=== PATIENT | male | born 1985 | race Caucasian/White ===

== ENCOUNTER 2018-05-21 12:15 | Emergency (ER) | payer OTHER ==
[~2018-05-21] VITALS: Ht 172.7 cm; Wt 72.6 kg
--- NOTE | 2018-05-21 12:25 | ED General ---
General Chief Complaint: Medical clearance for possible mental health hospitalization Stated Complaint: MEDICAL CLEARANCE Source of Information: Patient, Police History of Present Illness Date Seen by Provider: May 21, 2018 Time Seen by Provider: 12:20 32-year-old man who has been beating his head against a glass enclosure while in [facility]. He states that his "head is air dynamic and has a point that has helped him dig for the cup of [place]lu". Lucifer has been talking to him while in [facility] and telling him to hit his head. Patient denies SI or HI. Has been in police custody for about 3 weeks. Started beating his head on the [place] and glass 2-3 days ago when he got a hematoma and laceration that has stopped bleeding. He reports his last tetanus shot was < 5 years ago. Allergies and Home Medications Patient Home Medication List Home Medication List Reviewed: Yes Review of Systems Review of Systems Constitutional: No chills, No dizziness, No fever EENTM: see HPI; No blurred vision, No epistaxis Respiratory: No cough, No short of breath Cardiovascular: No chest pain, No syncope Gastrointestinal: No abdominal pain, No nausea, No vomiting Musculoskeletal: No joint pain, No muscle pain Skin: see HPI Psychiatric/Neurological: See HPI Past Mbjymmp-Bjhszs-Wgnvlr Hx Past Med/Social Hx: Reviewed Nursing Past Med/Soc Hx Physical Exam Vital Signs Vital Signs - First Documented 05/21/18 12:18 Temp 97.2 Pulse 80 Resp 18 B/P (MAP) 131/84 (100) Pulse Ox 99 O2 Delivery Room Air Capillary Refill : Height, Weight, BMI Height: '" Weight: lbs. oz. kg; BMI Method: General Appearance: No Apparent Distress, WD/WN HEENT: PERRL/EOMI, TMs Normal, Normal ENT Inspection, Pharynx Normal, Other ( Contusion at midforehead, with old healing 2 cm linear laceration/scab) Neck: Full Range of Motion, Normal Inspection, Non Tender, Supple Respiratory: Chest Non Tender, Lungs Clear, Normal Breath Sounds, No Accessory Muscle Use, No Respiratory Distress Cardiovascular: Regular Rate, Rhythm, No Edema, No Gallop, No JVD, No Murmur, Normal Peripheral Pulses Gastrointestinal: Normal Bowel Sounds, Non Tender, Soft Back: Normal Inspection, No CVA Tenderness, No Vertebral Tenderness Extremity: Normal Capillary Refill, Normal Inspection, Normal Range of Motion, Non Tender, No Calf Tenderness, No Pedal Edema Neurologic/Psychiatric: Alert, No Motor/Sensory Deficits, surveyor geodetic II-XII Norm as Tested, Other (Bizarre affect) Skin: Normal Color Progress/Results/Core Measures Suspected Sepsis SIRS Temperature: Pulse: Respiratory Rate: Laboratory Tests 05/21/18 12:30: White Blood Count 8.4 Blood Pressure / Mean: Laboratory Tests 05/21/18 12:30: Creatinine 0.96, Platelet Count 225, Total Bilirubin 0.3 Results/Orders Lab Results Laboratory Tests Test 05/21/18 12:20 05/21/18 12:30 Range/Units Urine Color YELLOW Urine Clarity CLEAR Urine pH 6.5 5-9 Urine Specific Park 1.020 1.016-1.022 Urine Protein NEGATIVE NEGATIVE Urine Glucose (UA) NEGATIVE NEGATIVE Urine Ketones NEGATIVE NEGATIVE Urine Nitrite NEGATIVE NEGATIVE Urine Bilirubin NEGATIVE NEGATIVE Urine Urobilinogen 0.2 NORMAL MG/DL Urine Leukocyte Esterase NEGATIVE NEGATIVE Urine RBC (Auto) TRACE-I NEGATIVE Urine RBC 5-10 H /HPF Urine WBC NONE /HPF Urine Crystals NONE /LPF Urine Bacteria NEGATIVE /HPF Urine Casts NONE /LPF Urine Mucus NEGATIVE /LPF Urine Culture Indicated NO Urine Opiates Screen NEGATIVE NEGATIVE Urine Oxycodone Screen NEGATIVE NEGATIVE Urine Methadone Screen NEGATIVE NEGATIVE Urine Propoxyphene Screen NEGATIVE NEGATIVE Urine Barbiturates Screen NEGATIVE NEGATIVE Ur Tricyclic Antidepressants Screen NEGATIVE NEGATIVE Urine Phencyclidine Screen NEGATIVE NEGATIVE Urine Amphetamines Screen NEGATIVE NEGATIVE Urine Methamphetamines Screen NEGATIVE NEGATIVE Urine Benzodiazepines Screen NEGATIVE NEGATIVE Urine Cocaine Screen NEGATIVE NEGATIVE Urine Cannabinoids Screen NEGATIVE NEGATIVE White Blood Count 8.4 4.3-11.0 10^3/uL Red Blood Count 5.27 4.35-5.85 10^6/uL Hemoglobin 16.3 13.3-17.7 G/DL Hematocrit 47 40-54 % Mean Corpuscular Volume 90 80-99 FL Mean Corpuscular Hemoglobin 31 25-34 PG Mean Corpuscular Hemoglobin Concent 34 32-36 G/DL Red Cell Distribution Width 12.7 10.0-14.5 % Platelet Count 225 130-400 10^3/uL Mean Platelet Volume 10.8 H 7.4-10.4 FL Neutrophils (%) (Auto) 54 42-75 % Lymphocytes (%) (Auto) 36 12-44 % Monocytes (%) (Auto) 7 0-12 % Eosinophils (%) (Auto) 3 0-10 % Basophils (%) (Auto) 1 0-10 % Neutrophils # (Auto) 4.6 1.8-7.8 X 10^3 Lymphocytes # (Auto) 3.0 1.0-4.0 X 10^3 Monocytes # (Auto) 0.6 0.0-1.0 X 10^3 Eosinophils # (Auto) 0.2 0.0-0.3 10^3/uL Basophils # (Auto) 0.0 0.0-0.1 10^3/uL Sodium Level 140 135-145 MMOL/L Potassium Level 4.5 3.6-5.0 MMOL/L Chloride Level 102 98-107 MMOL/L Carbon Dioxide Level 22 21-32 MMOL/L Anion Gap 16 H 5-14 MMOL/L Blood Urea Nitrogen 14 7-18 MG/DL Creatinine 0.96 0.60-1.30 MG/DL Estimat Glomerular Filtration Rate > 60 BUN/Creatinine Ratio 15 Glucose Level 91 70-105 MG/DL Calcium Level 9.1 8.5-10.1 MG/DL Corrected Calcium 8.5-10.1 MG/DL Total Bilirubin 0.3 0.1-1.0 MG/DL Aspartate Amino Transf (AST/SGOT) 22 5-34 U/L Alanine Aminotransferase (ALT/SGPT) 14 0-55 U/L Alkaline Phosphatase 95 40-136 U/L Total Protein 7.6 6.4-8.2 GM/DL Albumin 4.6 H 3.2-4.5 GM/DL Serum Alcohol < 10 <10 MG/DL My Orders Orders - DIANA SHER MD Ct Head Wo (05/21/18 12:38) Alcohol (05/21/18 12:38) Cbc With Automated Diff (05/21/18 12:38) Comprehensive Metabolic Panel (05/21/18 12:38) Drug Screen Stat (Urine) (05/21/18 12:38) Ua Culture If Indicated (05/21/18 12:38) Vital Signs/I&O 05/21/18 12:18 Temp 97.2 Pulse 80 Resp 18 B/P (MAP) 131/84 (100) Pulse Ox 99 O2 Delivery Room Air Capillary Refill : Progress Note : Progress Note Wound cleaned and dressed by nurse. Results and information sent [facility]. Patient to be discharged in PD custody, who [facility] and a bed is available. Diagnostic Imaging Diagonstic Imaging: CT Plain Films/CT/US/NM/MRI: head Comments IMPRESSION: No acute intracranial abnormality. Departure Impression Primary Impression: Contusion of forehead Additional Impression: Psychosis Disposition: [address] DIS/[address]/[place] (Discharged in police custody) Condition: Stable Departure-Patient Inst. Decision time for Depature: 13:43 Referrals: NO,LOCAL PHYSICIAN (PCP/Family) Primary Care Physician Patient Instructions: Minor Head Injury (DC) DIANA SHER MD May 21, 2018 12:25
--- NOTE | 2018-05-21 13:00 | Diagnostic Imaging Report ---
PROCEDURE: CT head without contrast. TECHNIQUE: Multiple contiguous axial images were obtained through the brain without the use of intravenous contrast. INDICATION: Head trauma. Comparison made with prior examination 08/25/2010. FINDINGS: The ventricles and sulci are within normal limits. There is no hydrocephalus or cerebral edema. There is no midline shift or mass effect. There is no intracranial mass, hemorrhage, or extra-axial fluid collection. The visualized paranasal sinuses and mastoid air cells are clear. There are no regional areas of decreased attenuation appreciated to suggest an acute CVA. IMPRESSION: No acute intracranial abnormality. Dictated by: Dictated on workstation # [id number]
--- NOTE | 2018-05-21 13:00 | NUR ---
LAC CLEANED AND TWO STERI STRIPS APPLIED TO LAC ON HEAD PER DR. SHER.
[2018-05-21 13:02] LABS: HEMATOCRIT 47 % (40-54); HEMOGLOBIN 16.3 G/DL (13.3-17.7); MEAN CORPUSCULAR HEMOGLOBIN 31 PG (25-34); MEAN CORPUSCULAR HGB CONC 34 G/DL (32-36); MEAN CORPUSCULAR VOLUME 90 FL (80-99); WHITE BLOOD COUNT 8.4 10^3/uL (4.3-11.0)
[2018-05-21 13:03] LABS: BASOPHILS % (AUTO) 1 % (0-10); EOSINOPHILS # (AUTO) 0.2 10^3/uL (0.0-0.3); EOSINOPHILS % (AUTO) 3 % (0-10); LYMPHOCYTES % (AUTO) 36 % (12-44); MEAN PLATELET VOLUME 10.8 FL (7.4-10.4); MONOCYTES # (AUTO) 0.6 X 10^3 (0.0-1.0); MONOCYTES % (AUTO) 7 % (0-12); NEUTROPHILS # (AUTO) 4.6 X 10^3 (1.8-7.8); NEUTROPHILS % (AUTO) 54 % (42-75); PLATELET COUNT 225 10^3/uL (130-400); RED CELL DISTRIBUTION WIDTH 12.7 % (10.0-14.5)
--- OUTSIDE RECORDS SUMMARY | 2018-05-21 13:07 | XMS REPORT ---
Author Anaya Santos Organization [employer] Address Unknown Phone Unavailable Care Team Providers Care Perfect Binder Operator Name Role Phone Anaya Tristan CP Unavailable Allergies No Known Allergies Problems No Known Problems Medications No Known Medications Results No Known Results Summary Purpose [employer] Submission
--- OUTSIDE RECORDS SUMMARY | 2018-05-21 13:07 | XMS REPORT ---
Author Anaya Santos Organization [employer] Address Unknown Phone Unavailable Care Team Providers Care Traffic Signal Mechanic Name Role Phone Anaya Tristan CP Unavailable Allergies, Adverse Reactions, Alerts Substance Reaction Event Type tramadol Info Not Available Drug Allergy Problems Problem Type Condition ICD-9 Code Onset Dates Condition Status Assessment Pain in joint, multiple sites 719.49 Active Medications Medication Code System Code Instructions Start Date End Date Status Dosage Loratadine [facility] [address]-30 10 MG Orally Once a day Active 1 tablet Gabapentin [facility] [address]-97 100 MG Orally once daily x1 week; then twice daily x1 week; then 3 times daily Active 1 capsule Meloxicam [facility] [address]-64 7.5 MG Orally twice daily as needed August 05, 2014 Active 1 tablet Procedures Procedure Coding System Code Date RBC SED RATE, AUTOMATED CPT-4 47564 Feb 06, 2014 CCP ANTIBODY CPT-4 55302 Feb 06, 2014 RHEUMATOID FACTOR, QUANT CPT-4 82484 Feb 06, 2014 Office Visit, Est Pt., Level 3 CPT-4 32784 Feb 06, 2014 Vital Signs Date/Time: Feb 06, 2014 BMI 23.01 Index Weight 155.8 lbs Height 69 in Blood Pressure Diastolic 84 mm Hg Blood Pressure Systolic 115 mm Hg Temperature 98.4 F Cardiac Monitoring Heart Rate 86 /min Results No Known Results Summary Purpose [employer] Submission
--- OUTSIDE RECORDS SUMMARY | 2018-05-21 13:07 | XMS REPORT ---
Author Anaya Santos Organization [employer] Address Unknown Phone Unavailable Care Team Providers Care Boat Assembler Name Role Phone Anaya Tristan CP Unavailable Allergies No Known Allergies Problems No Known Problems Medications No Known Medications Results No Known Results Summary Purpose [employer] Submission
--- OUTSIDE RECORDS SUMMARY | 2018-05-21 13:07 | XMS REPORT ---
Author Anaya Santos Organization [employer] Address Unknown Phone Unavailable Care Team Providers Care Lumber Driver Name Role Phone Anaya Tristan CP Unavailable Allergies No Known Allergies Problems No Known Problems Medications No Known Medications Results No Known Results Summary Purpose [employer] Submission
--- OUTSIDE RECORDS SUMMARY | 2018-05-21 13:07 | XMS REPORT ---
Author Anaya Santos Organization [employer] Address Unknown Phone Unavailable Care Team Providers Care Business Machine Operator Name Role Phone Anaya Tristan CP Unavailable Allergies, Adverse Reactions, Alerts Substance Reaction Event Type N.K.D.A. Info Not Available Non Drug Allergy Problems Problem Type Condition ICD-9 Code Onset Dates Condition Status Assessment Routine general medical examination at health care facility V70.0 Active Medications Medication Code System Code Instructions Start Date End Date Status Dosage Meloxicam [facility] [address]-25 7.5 MG Orally Once a day Active 1 tablet Gabapentin [facility] [address]-14 100 MG Orally Active not defined Loratadine [facility] [address]-94 10 MG Orally Once a day Active 1 tablet Procedures Procedure Coding System Code Date COMPLETE CBC W/AUTO DIFF WBC CPT-4 62762 Jan 07, 2014 Office Visit, New Pt., Level 3 CPT-4 66464 Jan 07, 2014 COMPREHEN METABOLIC PANEL CPT-4 96225 Jan 07, 2014 Vital Signs Date/Time: Jan 07, 2014 BMI 23.79 Index Weight 161.12 lbs Height 69 in Blood Pressure Diastolic 52 mm Hg Blood Pressure Systolic 98 mm Hg Temperature 98.1 F Cardiac Monitoring Heart Rate 51 /min Results Name Result Date Reference Range Unit COMPREHENSIVE METABOLIC PANEL Summary Purpose [employer] Submission
--- OUTSIDE RECORDS SUMMARY | 2018-05-21 13:07 | XMS REPORT ---
Author Anaya Santos [facility] [employer] Address Unknown Phone Unavailable Care Team Providers Care Engineering Test Specialist Name Role Phone Anaya Tristan CP Unavailable Allergies No Known Allergies Problems No Known Problems Medications No Known Medications Results No Known Results Summary Purpose [employer] Submission
--- OUTSIDE RECORDS SUMMARY | 2018-05-21 13:07 | XMS REPORT ---
Author Anaya Santos Organization [employer] Address Unknown Phone Unavailable Care Team Providers Care Neck Pinner Name Role Phone Anaya Tristan CP Unavailable Allergies No Known Allergies Problems Problem Type Condition ICD-9 Code Onset Dates Condition Status Assessment Displacement of intervertebral disc, site unspecified, without myelopathy 722.2 Active Medications No Known Medications Results No Known Results Summary Purpose [employer] Submission
--- OUTSIDE RECORDS SUMMARY | 2018-05-21 13:07 | XMS REPORT ---
Author Anaya Santos Organization [employer] Address Unknown Phone Unavailable Care Team Providers Care Sample Worker Name Role Phone Anaya Tristan CP Unavailable Allergies, Adverse Reactions, Alerts Substance Reaction Event Type tramadol Info Not Available Drug Allergy Problems Problem Type Condition ICD-9 Code Onset Dates Condition Status Assessment Pain in joint, multiple sites 719.49 Active Assessment Unspecified backache 724.5 Active Medications Medication Code System Code Instructions Start Date End Date Status Dosage Loratadine [facility] [address]-96 10 MG Orally Once a day Active 1 tablet Meloxicam [facility] [address]-46 7.5 MG Orally twice daily as needed August 05, 2014 Active 1 tablet Gabapentin [facility] [address]-92 300 MG Orally once daily x1 week; then twice daily x1 week; then 3 times daily Active 1 capsule Procedures Procedure Coding System Code Date Office Visit, Est Pt., Level 3 CPT-4 33246 Feb 20, 2014 Vital Signs Date/Time: Feb 20, 2014 BMI 23.39 Index Weight 158.4 lbs Height 69 in Blood Pressure Diastolic 85 mm Hg Blood Pressure Systolic 131 mm Hg Temperature 98.3 F Cardiac Monitoring Heart Rate 96 /min Results No Known Results Summary Purpose [employer] Submission
--- OUTSIDE RECORDS SUMMARY | 2018-05-21 13:07 | XMS REPORT ---
Author Anaya Santos Organization [employer] Address Unknown Phone Unavailable Care Team Providers Care Electric Scoop Operator Name Role Phone Anaya Tristan CP Unavailable Allergies, Adverse Reactions, Alerts Substance Reaction Event Type tramadol Info Not Available Drug Allergy Sudafed Info Not Available Drug Allergy Problems Problem Type Condition ICD-9 Code Onset Dates Condition Status Assessment Pain in joint, multiple sites 719.49 Active Medications Medication Code System Code Instructions Start Date End Date Status Dosage Meloxicam [facility] [address]-12 7.5 MG Orally twice daily as needed June Active 1 [address] [facility] [address]-91 300 MG Orally 3 times daily as needed Active 1 capsule Loratadine [facility] [address]-30 10 MG Orally Once a day Active 1 tablet Procedures Procedure Coding System Code Date Office Visit, Est Pt., Level 3 CPT-4 99119 Mar 20, 2014 Vital Signs Date/Time: Mar 20, 2014 BMI 23.20 Index Weight 157.12 lbs Height 69 in Blood Pressure Diastolic 87 mm Hg Blood Pressure Systolic 131 mm Hg Temperature 98.4 F Cardiac Monitoring Heart Rate 104 /min Results No Known Results Summary Purpose [employer] Submission
--- OUTSIDE RECORDS SUMMARY | 2018-05-21 13:07 | XMS REPORT ---
Author Anaya Santos Organization [employer] Address Unknown Phone Unavailable Care Team Providers Care Escrow Assistant Name Role Phone Anaya Tristan CP Unavailable Allergies No Known Allergies Problems No Known Problems Medications No Known Medications Results No Known Results Summary Purpose [employer] Submission
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
[2018-05-21 13:10] LABS: BACTERIA,URINE NEGATIVE /HPF; BILIRUBIN,URINE NEGATIVE (NEGATIVE); CLARITY,URINE CLEAR; COLOR,URINE YELLOW; GLUCOSE, URINE (UA) NEGATIVE (NEGATIVE); KETONES,URINE NEGATIVE (NEGATIVE); LEUKOCYTE ESTERASE ,URINE NEGATIVE (NEGATIVE); NITRITE,URINE NEGATIVE (NEGATIVE); PH,URINE 6.5 (5-9); PROTEIN,URINE NEGATIVE (NEGATIVE); UROBILINOGEN,URINE 0.2 MG/DL (NORMAL)
[2018-05-21 13:11] LABS: BILIRUBIN,TOTAL 0.3 MG/DL (0.1-1.0); BUN/CREATININE RATIO 15; CALCIUM 9.1 MG/DL (8.5-10.1); CARBON DIOXIDE 22 MMOL/L (21-32); CHLORIDE 102 MMOL/L (98-107); CREATININE SERUM 0.96 MG/DL (0.60-1.30); GFR ESTIMATED > 60; GLUCOSE 91 MG/DL (70-105); POTASSIUM 4.5 MMOL/L (3.6-5.0); SODIUM 140 MMOL/L (135-145)
[2018-05-21 13:11] LABS: AMPHETAMINE SCREEN, URINE NEGATIVE (NEGATIVE); BARBITURATE SCREEN URINE NEGATIVE (NEGATIVE); BENZODIAZEPINES SCREEN URINE NEGATIVE (NEGATIVE); CANNABINOID SCREEN, URINE NEGATIVE (NEGATIVE); COCAINE SCREEN URINE NEGATIVE (NEGATIVE); METHADONE STAT NEGATIVE (NEGATIVE); METHAMPHETAMINE SCREEN URINE S NEGATIVE (NEGATIVE); OPIATE SCREEN URINE NEGATIVE (NEGATIVE); OXYCODONE STAT NEGATIVE (NEGATIVE); PROPOXYPHENE STAT NEGATIVE (NEGATIVE); TRICYCLIC ANTIDEPRESSANTS SCRE NEGATIVE (NEGATIVE)
[2018-05-21 13:12] LABS: ALANINE AMINOTRANSFERASE 14 U/L (0-55); ALBUMIN 4.6 GM/DL (3.2-4.5); ALKALINE PHOSPHATASE 95 U/L (40-136); TOTAL PROTEIN 7.6 GM/DL (6.4-8.2)
[2018-05-21 13:55] VITALS: BP 111/63
== END 2018-05-21 13:55 ==
LOC: ER FS 12:18
DX: S00.83XA Contusion of other part of head, initial encounter (principal); F29 Unspecified psychosis not due to a substance or known physiological condition; X83.8XXA Intentional self-harm by other specified means, initial encounter; Y92.143 Cell of prison as the place of occurrence of the external cause
CPT/HCPCS: 36415; 70450; 80053; 80306; 80320; 81000; 85025

== ENCOUNTER 2018-06-13 16:47 | Emergency (ER) | payer OTHER ==
[~2018-06-13] VITALS: Ht 172.7 cm; Wt 68.0 kg
--- OUTSIDE RECORDS SUMMARY | 2018-06-13 16:53 | XMS REPORT | Continuity of Care Document ---
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 Psy, Batch 02/07/2017 F F31.9 Bipolar disorder, unspecified Aerly Amos R 02/07/2017 F F90.9 Attention- deficit hyperactivity disorder, unspecified type DandreMariahs R 02/07/2017 F 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 Mariah Amoss R 02/07/2017 F Z59.0 Homelessness Arely Amos R 02/07/2017 F Z65.3 Problems related to other legal circumstances Arely Amos R 02/07/2017 F F31.9 Bipolar disorder, unspecified T[place]ha, [place] 02/07/2017 F F90.9 Attention- deficit hyperactivity disorder, unspecified type T[place]ha, [place] 02/07/2017 F 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 Tyesha, [place] 02/13/2017 F F31.9 Bipolar disorder, unspecified Psy, Batch 02/13/2017 F F90.9 Attention- deficit hyperactivity disorder, unspecified type Psy, Batch 02/13/2017 F 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 Psy, Batch 02/15/2017 F F31.9 Bipolar disorder, unspecified Tyesha, [place] 02/15/2017 F F90.9 Attention- deficit hyperactivity disorder, unspecified type Tyesha, [place] 02/15/2017 F 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 Tyesha, [place] 02/16/2017 F F31.9 Bipolar disorder, unspecified Psy, Batch 02/16/2017 F F90.9 Attention- deficit hyperactivity disorder, unspecified type Psy, Batch 02/16/2017 F 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 Psy, Batch 02/22/2017 F F31.9 Bipolar disorder, unspecified Tyesha, [place] 02/22/2017 F F90.9 Attention- deficit hyperactivity disorder, unspecified type Tyesha, [place] 02/22/2017 F 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 [place], [place] 02/22/2017 F F31.9 Bipolar disorder, unspecified Psy, Batch 02/22/2017 F F90.9 Attention- deficit hyperactivity disorder, unspecified type Psy, Batch 02/22/2017 F 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 Psy, Batch 03/01/2017 F F31.9 Bipolar disorder, unspecified Tyesha, [place] 03/01/2017 F F90.9 Attention- deficit hyperactivity disorder, unspecified type [place], [place] 03/01/2017 F 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 Tyesha, [place] 03/01/2017 F F31.9 Bipolar disorder, unspecified Psy, Batch 03/01/2017 F F90.9 Attention- deficit hyperactivity disorder, unspecified type Psy, Batch 03/01/2017 F 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 Psy, Batch 03/02/2017 F F31.9 Bipolar disorder, unspecified Tyesha, [place] 03/02/2017 F F90.9 Attention- deficit hyperactivity disorder, unspecified type Tyesha, [place] 03/02/2017 F 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 [place], [place] 03/02/2017 F F31.9 Bipolar disorder, unspecified Psy, Batch 03/02/2017 F F90.9 Attention- deficit hyperactivity disorder, unspecified type Psy, Batch 03/02/2017 F 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 Psy, Batch 03/15/2017 F F31.9 Bipolar disorder, unspecified [place], [place] 03/15/2017 F F90.9 Attention- deficit hyperactivity disorder, unspecified type Tyesha, [place] 03/15/2017 F 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 Tyesha, [place] 03/16/2017 F F31.9 Bipolar disorder, unspecified Psy, Batch 03/16/2017 F F90.9 Attention- deficit hyperactivity disorder, unspecified type Psy, Batch 03/16/2017 F 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 Psy, Batch 03/20/2017 F F31.9 Bipolar disorder, unspecified [place], Keena 03/20/2017 F F90.9 Attention- deficit hyperactivity disorder, unspecified type [place], Keena 03/20/2017 F 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 Keena Chew 03/20/2017 F F31.9 Bipolar disorder, unspecified Tyesha, [place] 03/20/2017 F F90.9 Attention- deficit hyperactivity disorder, unspecified type [place], [place] 03/20/2017 F 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 [place], [place] 03/20/2017 F F31.9 Bipolar disorder, unspecified Psy, [...] F90.9 Attention- deficit hyperactivity disorder, unspecified type [place], [place] 04/11/2017 F 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 [...] F90.9 Attention- deficit hyperactivity disorder, unspecified type [place], [place] 04/26/2017 F 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 [place], [place] 04/30/2017 F F31.9 Bipolar disorder, unspecified [place], [place] 04/30/2017 F F90.9 Attention- deficit hyperactivity [...] F90.9 Attention- deficit hyperactivity disorder, unspecified type [place], [place] 05/14/2017 F 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 Tyesha, [place] 05/14/2017 F F31.9 Bipolar disorder, unspecified Psy, Batch 05/14/2017 F F90.9 Attention- deficit hyperactivity disorder, unspecified type Psy, Batch 05/14/2017 F 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 Psy, Batch 05/29/2017 F F31.9 Bipolar disorder, unspecified [place], [place] 05/29/2017 F F90.9 Attention- deficit hyperactivity disorder, unspecified type Tyesha, [place] 05/29/2017 F 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 [place], [place] 05/29/2017 F F31.9 Bipolar disorder, unspecified Psy, Batch 05/29/2017 F F90.9 Attention- deficit hyperactivity disorder, unspecified type Psy, Batch 05/29/2017 F 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 Psy, Batch 05/30/2017 F F31.9 Bipolar disorder, unspecified Tyesha, [place] 05/30/2017 F F90.9 Attention- deficit hyperactivity disorder, unspecified type [place], [place] 05/30/2017 F 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 [place], [place] 05/31/2017 F F31.9 Bipolar disorder, unspecified Psy, Batch 05/31/2017 F F90.9 Attention- deficit hyperactivity disorder, unspecified type Psy, Batch 05/31/2017 F 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 Psy, Batch 06/05/2017 F F31.9 Bipolar disorder, unspecified [place], [place] 06/05/2017 F F90.9 Attention- deficit hyperactivity disorder, unspecified type Tyesha, [place] 06/05/2017 F 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 Tyesha, [place] 06/07/2017 F F31.9 Bipolar disorder, unspecified Psy, Batch 06/07/2017 F F90.9 Attention- deficit hyperactivity disorder, unspecified type Psy, Batch 06/07/2017 F 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 Psy, Batch 06/13/2017 F F31.9 Bipolar disorder, unspecified [place], [place] 06/13/2017 F F90.9 Attention- deficit hyperactivity disorder, unspecified type [place], [place] 06/13/2017 F 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 Tyesha, [place] 06/15/2017 F F31.9 Bipolar disorder, unspecified Psy, Batch 06/15/2017 F F90.9 Attention- deficit hyperactivity disorder, unspecified type Psy, Batch 06/15/2017 F 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 Psy, Batch 2017 F F31.9 Bipolar disorder, unspecified Tyesha, [place] 2017 F F90.9 Attention- deficit hyperactivity disorder, unspecified type Tyesha, [place] 2017 F 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 [place], [place] 06/22/2017 F F31.9 Bipolar disorder, unspecified Psy, Batch 06/22/2017 F F90.9 Attention- deficit hyperactivity disorder, unspecified type Psy, Batch 06/22/2017 F 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 Psy, Batch 06/27/2017 F F31.9 Bipolar disorder, unspecified [place], [place] 06/27/2017 F F90.9 Attention- deficit hyperactivity disorder, unspecified type [place], [place] 06/27/2017 F 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 [place], [place] 06/29/2017 F F31.9 Bipolar disorder, unspecified Psy, Batch 06/29/2017 F F90.9 Attention- deficit hyperactivity disorder, unspecified type Psy, Batch 06/29/2017 F 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 Psy, Batch 07/06/2017 F F31.9 Bipolar disorder, unspecified [place], [place] 07/06/2017 F F90.9 Attention- deficit hyperactivity disorder, unspecified type Tyesha, [place] 07/06/2017 F 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 Tyesha, [place] 07/06/2017 F F31.9 Bipolar disorder, unspecified Psy, Batch 07/06/2017 F F90.9 Attention- deficit hyperactivity disorder, unspecified type Psy, Batch 07/06/2017 F 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 Psy, Batch 07/12/2017 F F31.9 Bipolar disorder, unspecified [place], [place] 07/12/2017 F F90.9 Attention- deficit hyperactivity disorder, unspecified type Tyesha, [place] 07/12/2017 F 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 [place], [place] 07/13/2017 F F31.9 Bipolar disorder, unspecified Psy, Batch 07/13/2017 F F90.9 Attention- deficit hyperactivity disorder, unspecified type Psy, Batch 07/13/2017 F 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 Psy, Batch 07/23/2017 F F31.9 Bipolar disorder, unspecified [place], [place] 07/23/2017 F F90.9 Attention- deficit hyperactivity disorder, unspecified type [place], [place] 07/23/2017 F 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 Tyesha, [place] 07/23/2017 F F31.9 Bipolar disorder, unspecified Psy, Batch 07/23/2017 F F90.9 Attention- deficit hyperactivity disorder, unspecified type Psy, Batch 07/23/2017 F 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 Psy, Batch 08/10/2017 F F31.9 Bipolar disorder, unspecified Tyesha, [place] 08/10/2017 F F90.9 Attention- deficit hyperactivity disorder, unspecified type [place], [place] 08/10/2017 F 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 Tyesha, [place] 08/10/2017 F F31.9 Bipolar disorder, unspecified Psy, Batch 08/10/2017 F F90.9 Attention- deficit hyperactivity disorder, unspecified type Psy, Batch 08/10/2017 F 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 Psy, Batch Procedures Code [place] [address] Initial hospital care, per day, for the evaluation and management of a patient which requires these Jean Marie Miranda 02/15/2016 [id number] Subsequent hospital care, per day, for the evaluation and management of a patient, which requires at Jean Marie Miranda 02/15/2016 [id number] Initial hospital care, per day, for the evaluation and management of a patient which requires these Jean Marie Miranda 02/16/2016 [id number] Subsequent hospital care, per day, for the evaluation and management of a patient, which requires at Jean Marie Miranda 02/16/2016 [id number] Admission Intake Madeline Shearer 01/01/2017 [id number] Admission Intake Janki, Madeline 01/01/2017 H0036 CPST - Adult Tyesha, [place] 02/07/2017 H0036 CPST - Adult Tyesha, [place] 02/07/2017 H2017 Psychosocial Rehabiliation - Individual Tyesha, [place] 02/15/2017 H2017 Psychosocial Rehabiliation - Individual [place], [place] 02/15/2017 H0036 CPST - Adult Tyesha, [place] 02/22/2017 H0036 CPST - Adult [place], [place] 02/22/2017 H2017 Psychosocial Rehabiliation - Individual Tyesha, [place] 03/01/2017 H2017 Psychosocial Rehabiliation - Individual [place], [place] 03/01/2017 H0036 CPST - Adult [place], [place] 03/02/2017 H0036 CPST - Adult Tyesha, [place] 03/02/2017 H0036 CPST - Adult [place], [place] 03/15/2017 H0036 CPST - Adult Tyesha, [place] 03/15/2017 H0036 CPST - Adult Tyesha, [place] 03/20/2017 [id number] Individual Therapy Deanna Kingm 03/20/2017 H0036 CPST - Adult [place], [place] 03/20/2017 [id number] Individual Therapy Fernando [facility] 03/20/2017 H0036 CPST - Adult [place], [place] 04/11/2017 H0036 CPST - Adult Tyesha, [place] 04/11/2017 H0036 CPST - Adult L'Hommedieu, Damon Trey 04/12/2017 H0036 CPST - Adult L'Hommedieu, Damon Trey 04/13/2017 H0036 CPST - Adult [place], [place] 04/20/2017 H0036 CPST - Adult Tyesha, [place] 04/20/2017 H0036 CPST - Adult Tyesha, [place] 04/26/2017 H0036 CPST - Adult [place], [place] 04/26/2017 H0036 CPST - Adult Tyesha, [place] 04/30/2017 H0036 CPST - Adult Tyesha, [place] 04/30/2017 H0036 CPST - Adult [place], [place] 05/10/2017 H0036 CPST - Adult [place], [place] 05/10/2017 H2017 Psychosocial Rehabiliation - Individual Tyesha, [place] 05/29/2017 H2017 Psychosocial Rehabiliation - Individual Tyesha, [place] 05/29/2017 H0036 CPST - Adult [place], [place] 05/30/2017 H0036 CPST - Adult Tyesha, [place] 05/30/2017 H2017 Psychosocial Rehabiliation - Individual Tyesha, [place] 06/05/2017 H2017 Psychosocial Rehabiliation - Individual [place], [place] 06/05/2017 H0036 CPST - Adult [place], [place] 06/13/2017 H0036 CPST - Adult [place], [place] 06/13/2017 H0036 CPST - Adult [place], [place] 06/20/2017 H0036 CPST - Adult Tyesha, [place] 2017 H0036 CPST - Adult [place], [place] 06/27/2017 H0036 CPST - Adult [place], [place] 06/27/2017 H2017 Psychosocial Rehabiliation - Individual Tyesha, [place] 07/06/2017 H0036 CPST - Adult [place], [place] 07/06/2017 H2017 Psychosocial Rehabiliation - Individual [place], [place] 07/11/2017 H2017 Psychosocial Rehabiliation - Individual Tyesha, [place] 07/12/2017 H0036 CPST - Adult [place], [place] 07/20/2017 H003 CPST - Adult Tyesha, [place] 07/20/2017 H003 CPST - Adult [place], [place] 08/10/2017 H003 CPST - Adult [place], [place] 08/10/2017 Results Test Result Range Complete urinalysis with reflex to culture - 05/21/18 12:20 Urine color determination YELLOW NRG Urine clarity determination CLEAR NRG Urine pH measurement by test strip 6.5 5-9 Specific gravity of urine by test strip 1.020 1.016- 1.022 Urine protein assay by test strip, semi-quantitative NEGATIVE NEGATIVE Urine glucose detection by automated test strip NEGATIVE NEGATIVE Erythrocytes detection in urine sediment by light microscopy TRACE- I NEGATIVE Urine ketones detection by automated test strip NEGATIVE NEGATIVE Urine nitrite detection by test strip NEGATIVE NEGATIVE Urine total bilirubin detection by test strip NEGATIVE NEGATIVE Urine urobilinogen measurement by automated test strip (mass/volume) 0.2 mg/dL NORMAL Urine leukocyte esterase detection by dipstick NEGATIVE NEGATIVE Automated urine sediment erythrocyte count by microscopy (number/high power field) [HPF] NRG Automated urine sediment leukocyte count by microscopy (number/high power field ) NONE NRG Bacteria detection in urine sediment by light microscopy NEGATIVE NRG Crystals detection in urine sediment by light microscopy NONE NRG Casts detection in urine sediment by light microscopy NONE NRG Mucus detection in urine sediment by light microscopy NEGATIVE NRG Complete urinalysis with reflex to culture NO NRG Urine drug screening test - 05/21/18 12:20 Urine phencyclidine detection by screening method NEGATIVE NEGATIVE Urine benzodiazepines detection by screening method NEGATIVE NEGATIVE Urine cocaine detection NEGATIVE NEGATIVE Urine amphetamines detection by screening method NEGATIVE NEGATIVE Urine methamphetamine detection by screening method NEGATIVE NEGATIVE Urine cannabinoids detection by screening method NEGATIVE NEGATIVE Urine opiates detection by screening method NEGATIVE NEGATIVE Urine barbiturates detection NEGATIVE NEGATIVE Screening urine tricyclic antidepressants detection NEGATIVE NEGATIVE Urine methadone detection by screening method NEGATIVE NEGATIVE Urine oxycodone detection NEGATIVE NEGATIVE Urine propoxyphene detection NEGATIVE NEGATIVE Complete blood count (CBC) with automated white blood cell (WBC) differential - 05/21/18 12:30 Blood leukocytes automated count (number/volume) 8.4 10*3/uL 4.3-11.0 Blood erythrocytes automated count (number/volume) 5.27 10*6/uL 4.35-5.85 Venous blood hemoglobin measurement (mass/volume) 16.3 g/dL 13.3-17.7 Blood hematocrit (volume fraction) 47 % 40-54 Automated erythrocyte mean corpuscular volume 90 [foz_us] 80-99 Automated erythrocyte mean corpuscular hemoglobin (mass per erythrocyte) 31 pg 25-34 Automated erythrocyte mean corpuscular hemoglobin concentration measurement ( mass/volume) 34 g/dL 32-36 Automated erythrocyte distribution width ratio 12.7 % 10.0-14.5 Automated blood platelet count (count/volume) 225 10*3/uL 130-400 Automated blood platelet mean volume measurement 10.8 [foz_us] 7.4-10.4 Automated blood neutrophils/100 leukocytes 54 % 42-75 Automated blood lymphocytes/100 leukocytes 36 % 12-44 Blood monocytes/100 leukocytes 7 % 0-12 Automated blood eosinophils/100 leukocytes 3 % 0-10 Automated blood basophils/100 leukocytes 1 % 0-10 Blood neutrophils automated count (number/volume) 4.6 10*3 1.8-7.8 Blood lymphocytes automated count (number/volume) 3.0 10*3 1.0-4.0 Blood monocytes automated count (number/volume) 0.6 10*3 0.0-1.0 Automated eosinophil count 0.2 10*3/uL 0.0-0.3 Automated blood basophil count (count/volume) 0.0 10*3/uL 0.0-0.1 Comprehensive metabolic panel - 05/21/18 12:30 Serum or plasma sodium measurement (moles/volume) 140 mmol/L 135-145 Serum or plasma potassium measurement (moles/volume) 4.5 mmol/L 3.6-5.0 Serum or plasma chloride measurement (moles/volume) 102 mmol/L 98-107 Carbon dioxide 22 mmol/L 21-32 Serum or plasma anion gap determination (moles/volume) 16 mmol/L 5-14 Serum or plasma urea nitrogen measurement (mass/volume) 14 mg/dL 7-18 Serum or plasma creatinine measurement (mass/volume) 0.96 mg/dL 0.60-1.30 Serum or plasma urea nitrogen/creatinine mass ratio 15 NRG Serum or plasma creatinine measurement with calculation of estimated glomerular filtration rate > NRG Serum or plasma glucose measurement (mass/volume) 91 mg/dL 70-105 Serum or plasma calcium measurement (mass/volume) 9.1 mg/dL 8.5-10.1 Serum or plasma total bilirubin measurement (mass/volume) 0.3 mg/dL 0.1-1.0 Serum or plasma alkaline phosphatase measurement (enzymatic activity/volume) 95 U/L 40-136 Serum or plasma aspartate aminotransferase measurement (enzymatic activity/ volume) 22 U/L 5-34 Serum or plasma alanine aminotransferase measurement (enzymatic activity/volume ) 14 U/L 0-55 Serum or plasma protein measurement (mass/volume) 7.6 g/dL 6.4-8.2 Serum or plasma albumin measurement (mass/volume) 4.6 g/dL 3.2-4.5 Serum or plasma ethanol measurement (mass/volume) - 05/21/18 12:30 Serum or plasma ethanol measurement (mass/volume) < mg/dL <10 Encounters ACCT No. Visit Date/Time Discharge Status Pt. Type Provider Facility Loc./Unit Complaint [id number] 08/10/2017 15:30:00 08/10/2017 16:00:00 DIS Unknown [id number] 02/15/2016 21:48:16 Document Registration [id number] 04/09/2014 19:28:00 04/09/2014 22:26:00 DIS Emergency Flex Noe MD [facility] ED body aches [id number] 02/07/2014 18:28:00 02/07/2014 19:12:00 DIS Emergency Flex Noe MD [facility] ED Cough KSWebIZ 09/04/2017 11:51:12 ACT Document Registration [id number] 05/21/2018 12:18:00 05/21/2018 13:55:00 DIS Emergency DIANA SHER MD [facility] MEDICAL CLEARANCE [id number] 02/10/2014 18:52:00 02/10/2014 18:52:00 DIS Outpatient Geovanna VALDEZ, Liya Galvin [facility] W.RAD [id number] 05/03/2013 11:51:00 05/03/2013 12:22:00 DIS Emergency Cristine VALDEZ, Makr Montgomery [facility] W.AMY [id number] 08/15/2013 20:36:00 08/15/2013 22:43:00 DIS Emergency Florentin VALDEZ [facility] [id number] 06/24/2013 16:02:00 06/24/2013 17:47:00 DIS Emergency Florentin VALDEZ [facility] [id number] 06/23/2013 13:45:00 06/23/2013 14:40:00 DIS Emergency Florentin VALDEZ [facility] [id number] 06/01/2013 18:51:00 06/01/2013 19:55:00 DIS Emergency Florentin VALDEZ [facility] [id number] 11/05/2012 12:11:00 11/05/2012 14:32:00 DIS Emergency Flex Noe MD [facility] [id number] 07/28/2012 12:40:00 07/28/2012 12:59:00 DIS Emergency Florentin VALDEZ [facility]
--- NOTE | 2018-06-13 18:55 | ED General ---
General Chief Complaint: General Problems/Pain Stated Complaint: HEALTH CHECK Source of Information: Patient, Police History of Present Illness Date Seen by Provider: Jun 13, 2018 Time Seen by Provider: 18:45 Initial Comments 32 yo M presenting with law enforcement for medical clearance to go to custodial. He was having mental status change and had been using methamphetamines. They needed to have him evaluated before they could take him to the custodial. He had no complaints of his own other than he wanted to go home and smoke. He denied having any pain. When asked if he did any drugs he said he needed to go home so he could "smoke his medicine" and winked. Allergies and Home Medications Patient Home Medication List Home Medication List Reviewed: Yes Review of Systems Review of Systems Constitutional: no symptoms reported EENTM: no symptoms reported Respiratory: no symptoms reported Cardiovascular: no symptoms reported Gastrointestinal: no symptoms reported Genitourinary: no symptoms reported Musculoskeletal: no symptoms reported Skin: no symptoms reported Psychiatric/Neurological: Other (pt has flight of ideas and is anxious) Past [id number] Hx Past Med/Social Hx: Reviewed Nursing Past Med/Soc Hx Patient Social History Recent Foreign Travel: No Contact w/Someone Who Travel: No Recent Hopitalizations: No Seasonal Allergies Seasonal Allergies: No Past Medical History Surgeries: No Respiratory: No Cardiac: No Neurological: No Genitourinary: No Gastrointestinal: No Musculoskeletal: No Endocrine: No Cancer: No Psychosocial: Yes ("ORGANIC MENTAL DISORDER") Bipolar Integumentary: No Physical Exam Vital Signs Vital Signs - First Documented 06/13/18 18:44 Temp 99.4 Pulse 79 Resp 18 B/P (MAP) 138/76 (96) Pulse Ox 98 O2 Delivery Room Air Capillary Refill : Height, Weight, BMI Height: 5'8.00" Weight: 160lbs. oz. 72.919525qj; BMI Method:Stated General Appearance: No Apparent Distress, WD/WN, Anxious, Thin Eyes: Bilateral Eye Normal Inspection, Bilateral Eye PERRL, Bilateral Eye EOMI HEENT: PERRL/EOMI, Normal ENT Inspection, Pharynx Normal, Moist Mucous Membranes Neck: Full Range of Motion, Normal Inspection, Non Tender, Supple Respiratory: Chest Non Tender, Lungs Clear, Normal Breath Sounds, No Accessory Muscle Use, No Respiratory Distress Cardiovascular: Regular Rate, Rhythm, Normal Peripheral Pulses Gastrointestinal: Normal Bowel Sounds, Non Tender, Soft Back: Normal Inspection Extremity: Normal Capillary Refill, Normal Range of Motion Neurologic/Psychiatric: Alert, No Motor/Sensory Deficits, Other (flight of ideas) Skin: Normal Color, Warm/Dry, Other (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 Decision time for Depature: 18:53 Referrals: NO,LOCAL PHYSICIAN (PCP/Family) Primary Care Physician Patient Instructions: Altered Mental Status (DC) Add. Discharge Instructions: Medically clear to go with law enforcement. Do not use drugs or alcohol Stay well hydrated and drink plenty of water. All discharge instructions reviewed with patient and/or family. Voiced understanding. LYLE MARTIN MD Jun 13, 2018 18:55
[2018-06-13 19:00] VITALS: BP 120/62
== END 2018-06-13 19:00 | disposition home or self-care (01) ==
LOC: EDUNIT# 16:47 → ER FS 16:48
DX: R41.82 Altered mental status, unspecified (principal); F31.9 Bipolar disorder, unspecified; Z02.1 Encounter for pre-employment examination
CPT/HCPCS: 99281

== ENCOUNTER 2021-09-06 11:01 | Emergency (ER) | payer OTHER ==
[~2021-09-06] VITALS: Ht 172.7 cm; Wt 73.6 kg
[2021-09-06] MEDS ORDERED: HALOPERIDOL 5 MG/ML (HALDOL) VIAL IM ONE (11:45)
--- NOTE | 2021-09-06 11:58 | Diagnostic Imaging Report ---
CLINICAL INDICATION: Patient with large laceration of forehead. EXAM: Axial CT scan of the brain without IV contrast with coronal and sagittal reformatted images. Auto Exposure Controls were utilized during the CT exam to meet ALARA standards for radiation dose reduction. COMPARISON: Head CT without contrast dated 05/21/2018. FINDINGS: There is no evidence of acute cerebral infarct, intracranial hemorrhage, or gross mass effect. The brain parenchymal volume appears appropriate for patient's age. There is normal burnett-white matter distinction. There is no significant midline shift or herniation. There is no evidence of hydrocephalus. The basal cisterns are unremarkable. There is a moderate-sized area of soft tissue swelling and laceration involving the midline forehead/frontal region. There is no skull fracture. Otherwise, the skull, extracranial soft tissue, and orbits are unremarkable. The paranasal sinuses are unremarkable. Temporal bones show no significant abnormality. IMPRESSION: 1: There is no evidence of acute intracranial process. There is no intracranial hemorrhage. 2: There is a moderate-sized area of soft tissue swelling and laceration involving the midline forehead/frontal region. There is no skull fracture. Dictated by: Dictated on workstation # [id number]
--- NOTE | 2021-09-06 12:05 | ED Head Injury ---
General Chief Complaint: Laceration Stated Complaint: HEAD LAC Nursing Triage Note: PT TO ROOM FS01 WITH ADELIA WITH C/O LAC TO CENTER OF FOREHEAD. ADELIA STATES PT WAS BANGING HIS HEAD ON A GLASS WINDOW. Source: patient Exam Limitations: no limitations, other History of Present Illness Date Seen by Provider: Sep 06, 2021 Time Seen by Provider: 11:00 Initial Comments Patient is a 36-year-old inmate who presents with head laceration after banging his head off of the cell plexiglass window. No loss of consciousness. Tetanus up-to-date. On exam, the patient is a vertical, 7 cm full-thickness laceration to central forehead. Laceration is clean, bleeding is controlled. Patient is uncooperative verbally, but follows basic commands. Occurred: just prior to arrival Severity: moderate Method of Injury: other Associated Systoms: Other Allergies and Home Medications Allergies Coded Allergies: No Known Drug Allergies (Unverified , 09/06/21) Patient Home Medication List Home Medication List Reviewed: Yes Review of Systems Review of Systems Constitutional: see HPI Eyes: See HPI Ears, Nose, Mouth, Throat: see HPI Past Yxzeowo-Qekykc-Tvanpi Hx Patient Social History Tobacco Use?: No Smoking Status: Never a Smoker Smokeless Tobacco Frequency: Never a User Use of E-Cig and/or Vaping dev: No Use of E-Cig and/or Vaping Valentin: Never a User Substance use?: Yes Substance type: Methamphetamine Alcohol Use?: No Pt feels they are or have been: No Seasonal Allergies Seasonal Allergies: No Past Medical History Surgeries: No Respiratory: No Cardiac: No Neurological: No Genitourinary: No Gastrointestinal: No Musculoskeletal: No Endocrine: No Cancer: No Psychosocial: Yes ("ORGANIC MENTAL DISORDER") Bipolar Integumentary: No Physical Exam Vital Signs Vital Signs - First Documented 09/06/21 11:09 Temp 36.6 Pulse 76 Resp 16 B/P (MAP) 144/76 (98) O2 Delivery Room Air Capillary Refill : Less Than 3 Seconds Height, Weight, BMI Height: 5'8.00" Weight: 150lbs. 0oz. [id number]; 24.00 BMI Method:Stated General Appearance: WD/WN HEENT: PERRL/EOMI, normal ENT inspection, other Neck: non-tender, full range of motion, supple Cardiovascular: normal peripheral pulses Respiratory: lungs clear Procedures/Interventions Wound Location: Scalp Other Wound Location 7 Wound Explored: clean Betadine Prep?: No Anesthesia: 1% Lidocaine Volume Anesthetic (ccs): 8 Wound Debrided: minimal Suture: Vicryl Suture Size: 5-0 Number of Sutures: 10 Layer Closure?: 2 Number Deep Layer Sutures: 4 Sterile Dressing Applied?: No Progress You were evaluated in the emergency wound cleansed and closed. CT head negative. Tylenol given to facilitate cooperation. Oral antibiotics given. Patient has a history of removing sutures upon returning to [facility]. He is at high risk of infection. Return precautions were Progress/Results/Core Measures Results/Orders My Orders Orders - PABLO URBAN DO Ct Head Wo (09/06/21 11:17) Haloperidol Injection (Haldol Injectio (09/06/21 11:45) Amoxicillin/Clavulanate Tablet (Augmenti (09/06/21 12:45) Medications Given in ED Current Medications Medications Dose Ordered Sig/Germania Route Start Time Stop Time Status Last Admin Dose Admin Haloperidol Lactate 10 mg ONCE ONCE IM 09/06/21 11:45 09/06/21 11:46 DC 09/06/21 11:51 10 MG Vital Signs/I&O 09/06/21 11:09 Temp 36.6 Pulse 76 Resp 16 B/P (MAP) 144/76 (98) O2 Delivery Room Air Blood Pressure Mean: 98 Departure Communication (Admissions) CT head: No skull fracture or brain injury. Midline soft tissue laceration soft tissue deep Patient with head injury with soft tissue laceration. CT unremarkable. Antibiotics pain, Haldol given to facilitate cooperation. Wound repaired. Typical closed head injury/wound care instructions provided Impression Primary Impression: Head injury Additional Impression: Forehead laceration Disposition: 01 HOME, SELF-CARE Condition: Stable Departure-Patient Inst. Decision time for Depature: 13:00 Referrals: NO,LOCAL PHYSICIAN (PCP/Family) Primary Care Physician Patient Instructions: Laceration Repair With Stitches ED, Minor Head Injury, Adult ED Add. Discharge Instructions: Please keep wound clean. Sutures are absorbable and do not require removal. Take ibuprofen for pain and antibiotics as directed. Return to the ED if signs of skin infection or worsening head injury. All discharge instructions reviewed with patient and/or family. Voiced understanding. Scripts Amoxicillin (Amoxicillin) 875 Mg Tablet 875 MG PO BID, #14 TAB Prov: PABLO URBAN DO 09/06/21 PABLO URBAN DO Sep 06, 2021 12:05
[2021-09-06] MEDS ORDERED: AMOX875T2 PO (12:44)
[2021-09-06] MEDS ORDERED: AUGMENTIN 875 MG TAB (AMOXICILLIN/CLAVULANATE) PO SCH (12:45)
[2021-09-06 12:55] VITALS: BP 144/76
== END 2021-09-06 12:55 | disposition home or self-care (01) ==
LOC: EDUNIT# 11:01 → ER FS 11:03
DX: S01.81XA Laceration without foreign body of other part of head, initial encounter (principal); W22.8XXA Striking against or struck by other objects, initial encounter
CPT/HCPCS: 12013; 70450